=== PATIENT | female | born 1955 | race African-American/Black ===

== ENCOUNTER 2019-04-27 08:39 | Emergency (ER) | payer OTHER ==
[~2019-04-27] VITALS: Ht 170.2 cm; Wt 85.3 kg
[2019-04-27 10:12] LABS: Urine Bacteria FEW /hpf (None Seen); Urine Blood Negative /uL (Negative); Urine Mucus FEW (None Seen); Urine WBC 2 /hpf (0 - 5)
[2019-04-27] MEDS ORDERED: SODIUM CHLORIDE 0.9% 1,000 ML IV ONE (11:34)
[2019-04-27] MEDS ORDERED: METOCLOPRAMIDE HCL 5MG/ml INJ 2ml VIAL IV ONE (11:45)
[2019-04-27] MEDS ORDERED: NALBUPHINE HCL 10 MG/1ml INJECTION IV ONE (11:45)
[2019-04-27 12:07] LABS: Mean Corpuscular Volume 81.9 fL (80.0-100.0)
[2019-04-27 12:09] LABS: Hematocrit 40.4 % (36.0-46.0); Hemoglobin 12.9 g/dL (12.2-16.2); Mean Corpuscular Hemoglobin 26.2 pg (28.0-32.0); Platelet Count (auto) 158 10^3/uL (140-450); Red Blood Cells 4.93 10^6/uL (4.0-5.20); Red Cell Distribution Width 13.9 % (11.8-14.3); White Blood Cell 4.2 10^3/uL (4.4-10.8)
[2019-04-27 12:21] LABS: Albumin 3.8 g/dL (3.4-5.0); Calcium 9.4 mg/dL (8.5-10.1); Magnesium 2.2 mg/dL (1.6-2.6); Potassium 4.2 mmol/L (3.5-5.1)
[2019-04-27 12:25] LABS: BUN/Creatinine Ratio 16.7; Bilirubin, Total 0.3 mg/dL (0.2-1.0); Total Protein 7.6 g/dL (6.4-8.2)
[2019-04-27 12:27] LABS: Band Neutrophils % (manual) 0; Basophils % (manual) 0 (0.0-2.0); Blast Cells 0; Metamyelocytes % 0; Myelocytes % 0; Promyelocytes % 0; Reactive Lymphocytes 0
[2019-04-27 12:57] LABS: Eosinophils % (manual) 2 (0-7); Lymphocytes % (manual) 53 (10.0-50.0); Monocytes % (manual) 8 (0-12)
[2019-04-27 13:40] VITALS: BP 132/72
[2019-04-27] MEDS ORDERED: cefTRIAXone 1GM/50ML D5W 50 ML IV ONE (14:00)
== END 2019-04-27 15:45 | disposition home or self-care (01) ==
LOC: ER 08:39
DX: G44.221 Chronic tension-type headache, intractable (principal); J18.9 Pneumonia, unspecified organism
CPT/HCPCS: 36415; 70450; 71046; 80053; 81001; 83735; 85007; 85027; 87040; 93005; 94761; 96365; 96375; 99284; J0696; J2300; J2765; J7030